=== PATIENT | female | born 1950 | race Caucasian/White ===

== ENCOUNTER 2019-07-03 07:28 | Emergency (ER) | payer MEDICARE ==
[2019-07-03] MEDS ORDERED: Ketorolac 30 MG/ML SDV IVPUSH ONE (07:45)
[2019-07-03] MEDS ORDERED: Dextrose 5%-0.9% NaCl 1,000 ML IV SCH (07:45)
[2019-07-03] MEDS ORDERED: Ondansetron 4 MG/2 ML SDV IVPUSH ONE (07:46)
[2019-07-03] MEDS ORDERED: HYDROmorphone 0.5 MG/0.5 ML Syringe IVPUSH ONE (07:47)
--- NOTE | 2019-07-03 07:47 | EDM.PDOC ---
ED HPI GENERAL MEDICAL PROBLEM - General Chief Complaint: Flank Pain Stated Complaint: [facility] Time Seen by Provider: 07/03/19 07:37 Source of Information: Reports: Patient, EMS History Limitations: Reports: No Limitations - History of Present Illness INITIAL COMMENTS - FREE TEXT/NARRATIVE: 68-year-old female presents to the ED complaining of finding of severe right low back pain which minimizes her mobility. States the pain kept her awake a good portion of the night. Was seen in consultation with PA student Pedro Bowie. Agree with his documentation and assessment and treatment plan of this patient. She denies any trips falls or injuries to her back. She been riding a bus for the last 36 hours riding and very awkward positions. No radiculopathy or pain rating down her buttock or leg. No loss of bladder or bowel control Onset: Gradual Onset Date: 07/02/19 Onset Time: 19:00 Duration: Hour(s):, Getting Worse Location: Reports: Back (Right low back pain rating all the way up to her shoulder blade on the right side) Quality: Reports: Ache, Other Severity: Moderate (Cage like sharp stabbing spastic type pain) Improves with: Reports: Rest ( 8 out of 10) Worsens with: Reports: Movement Context: Denies: Activity, Exercise, Lifting, Sick Contact, Trauma, Other Associated Symptoms: Reports: Other (Hurts to take a deep breathing as it makes the muscle spasm.) Treatments DOUBLER HELPER: Reports: Acetaminophen, NSAIDS Right Flank Pain Score (Numeric/FACES): 8 - Related Data Allergies Allergy/AdvReac Type Severity Reaction Status Date / Time aspirin Allergy Stomach Verified 07/03/19 07:39 Upset Home Meds: Home Meds Cyclobenzaprine [Flexeril] 10 mg PO BEDTIME PRN #10 tab 07/03/19 [Rx] oxyCODONE HCl/Acetaminophen [Percocet 5-325 mg Tablet] 1 - 2 each PO Q4H PRN # 20 tablet 07/03/19 [Rx] predniSONE [Prednisone] 20 mg PO BID #10 tablet 07/03/19 [Rx] Past Medical History Cardiovascular History: Reports: Heart Valve Replacement, Hypertension ( Thrombotic agents. Arctic valve replacement. She is currently not on any anti- ) Respiratory History: Reports: COPD Musculoskeletal History: Reports: Arthritis, Osteoarthritis, Osteoporosis Social & Family History - Living Situation & Occupation Living situation: Reports: Single Occupation: Retired ED ROS GENERAL - Review of Systems Review Of Systems: See Below Constitutional: Reports: Malaise, Weakness, Fatigue, Other (Not had much to eat or drink in the last 2 days.). Denies: Fever, Chills HEENT: Reports: Glasses Respiratory: Reports: No Symptoms Cardiovascular: Reports: Edema (Edema both lower extremities with venous stasis dermatitis.). Denies: Chest Pain, Blood Pressure Problem, Claudication, Lightheadedness, Orthopnea Endocrine: Reports: Fatigue GI/Abdominal: Reports: Constipation (Occasional problems) Skin: Reports: Other Neurological: Reports: No Symptoms (Venous stasis dermatitis both lower extremities) Psychiatric: Reports: No Symptoms Hematologic/Lymphatic: Reports: No Symptoms Immunologic: Reports: No Symptoms ED EXAM,LOWER BACK PAIN/INJURY - Physical Exam Exam: See Below Exam Limited By: No Limitations General Appearance: Alert, WD/WN, Moderate Distress, Other (Vital signs were temperature 36.6 with heart rate of 77 and sinus respiratory to 16 BP 05/17/1975 pulse ox is 93% on room air) Eye Exam: Bilateral Eye: Normal Inspection Throat/Mouth: Other Head: Atraumatic, Normocephalic (Tongue is mildly dry and coated) Neck: Normal Inspection, Supple, Non-Tender, Full Range of Motion, Tender Lateral (Tender bilateral aspect of neck). No: Limited Range of Motion, Lymphadenopathy (L) Respiratory/Chest: No Respiratory Distress, Lungs Clear, Normal Breath Sounds, No Accessory Muscle Use Cardiovascular: Normal Peripheral Pulses, Regular Rate, Rhythm, No Edema, No Gallop, No Murmur, No Rub, Other (Healed midline sternotomy incision) GI/Abdominal: Normal Bowel Sounds, Soft, Non-Tender, No Organomegaly, No Mass, Pelvis Stable, Other (Moderately obese. Abdominal girth limits ability to palpate solid organs.) Back Exam: Other (Patient has diffuse pain on palpation throughout the right lower back particular a L4-L5 and L5-S1 facet joints. There is mild associated paraspinal muscle spasm. She complains of pain all the way up to thoracic 6 vertebra adjacent to her scapula no rib head subluxation was identified.) Extremities: Other (Very minimal edema of her feet. She has significant venous stasis dermatitis with dark brawny discoloration almost up to the knees bilaterally.) Neurological: Alert, Normal Mood/Affect, Normal Dorsiflexion, CN II-XII Intact Psychiatric: Normal Affect, Normal Mood Skin Exam: Warm, Dry, Intact, Normal Color, No Rash Course - Vital Signs Last Recorded V/S: Last Vital Signs Temp 36.6 C 07/03/19 07:36 Pulse 77 07/03/19 07:36 Resp 16 07/03/19 07:36 BP 126/76 07/03/19 07:36 Pulse Ox 94 L 07/03/19 08:15 - Orders/Labs/Meds Labs: Laboratory Tests 07/03/19 Range/Units 09:55 Urine Color Yellow (Yellow) Urine Appearance Clear (Clear) Urine pH 6.0 (5.0-8.0) Ur Specific [place] > or = 1.030 (1.005-1.030) Urine Protein 2+ H (Negative) Urine Glucose (UA) Negative (Negative) Urine Ketones Negative (Negative) Urine Occult Blood Negative (Negative) Urine Nitrite Negative (Negative) Urine Bilirubin 2+ H (Negative) Urine Urobilinogen 2.0 H (0.2-1.0) Ur Leukocyte Esterase Trace H (Negative) U Hyaline Cast (Auto) 0-5 (0-5) /lpf Urine RBC 10-20 H (0-5) /hpf Urine WBC 5-10 H (0-5) /hpf Ur Squamous Epith Cells 10-20 H (0-5) /hpf Amorphous Sediment Few H (NOT SEEN) /hpf Urine Bacteria Moderate H (FEW) /hpf Urine Mucus Few (FEW) /hpf Meds: Medications Discontinued Medications Generic Name Dose Route Start Last Admin Trade Name Harsh PRN Reason Stop Dose Admin Diazepam 2.5 mg 07/03/19 07:46 07/03/19 08:04 Valium IVPUSH 07/03/19 07:47 2.5 mg ONETIME ONE Administration Hydromorphone HCl 0.5 mg 07/03/19 07:47 07/03/19 07:58 Dilaudid IVPUSH 07/03/19 07:48 0.5 mg ONETIME ONE Administration Dextrose/Sodium Chloride 1,000 mls @ 999 mls/hr 07/03/19 07:45 07/03/19 07:56 Dextrose 5%-Normal Saline IV 999 mls/hr ASDIRECTED MARVIN Administration Ketorolac Tromethamine 30 mg 07/03/19 07:45 07/03/19 07:57 Toradol IVPUSH 07/03/19 07:46 30 mg ONETIME ONE Administration Methylprednisolone Sodium Succinate 125 mg 07/03/19 07:48 07/03/19 08:18 Solu-Medrol IVPUSH 07/03/19 07:49 125 mg ONETIME ONE Administration Ondansetron HCl 4 mg 07/03/19 07:46 07/03/19 07:57 Zofran IVPUSH 07/03/19 07:47 4 mg ONETIME ONE Administration - Radiology Interpretation Free Text/Narrative:: 8-year-old female presents to the ED with diffuse low back pain. She was seen in consultation with PA student Pedro Vela. I agree with his assessment documentation and treatment plan. She was given Dilaudid 0.5 mg IV with Valium 2.5 mg IV for muscle spasm and pain. Also given Solu-Medrol 125 mg IV and Toradol 30 mg IV. Patient will be reassessed in about an hour's time. At this point time appears that she is homeless after getting off the bus. Will have social work assistant see her in consultation with a view to possibly getting into the women's long term until she can sort out where she is going. Her plans were to travel to [facility]. - Re-Assessments/Exams Free Text/Narrative Re-Assessment/Exam: 07/03/19 08:47 patient indicates that she is feeling much better. She is slightly drowsy from the medication but no further spasm in her low back muscles has occurred. We are getting her breakfast as it is been a while since she is eaten. youth accommodation support worker has yet to see her. Reports her pain is down to 2 out of 10. 07/03/19 10:40 social work assistant is working with the patient to try and arrange for a bus ticket for her to get to her son's home since she gave up her home in [place] to move out here and has only $4 to her name. We will try and get medication for her back through the [facility] machine. This will include Percocet 5/325 mg 1 or 2 every 4-6 hours needed for pain relief x20 tablets. Flexeril 10 mg x 1 at bedtime x10 tablets, and prednisone 20 mg twice daily for 5 days and then 1 in the morning for another 5 days for total of 15 tablets. Departure - Departure Time of Disposition: 11:50 Disposition: Home, Self-Care 01 Condition: Fair Clinical Impression: Acute myofascial strain of lumbar region Qualifiers: Encounter type: initial encounter Qualified Code(s): S39.012A - Strain of muscle, fascia and tendon of lower back, initial encounter - Discharge Information *PRESCRIPTION DRUG MONITORING PROGRAM REVIEWED*: Not Applicable *COPY OF PRESCRIPTION DRUG MONITORING REPORT IN PATIENT LAZARO: Not Applicable Prescriptions: Cyclobenzaprine [Flexeril] 10 mg PO BEDTIME PRN #10 tab PRN Reason: Relief of muscle spasm oxyCODONE HCl/Acetaminophen [Percocet 5-325 mg Tablet] 1 - 2 each PO Q4H PRN # 20 tablet PRN Reason: pain relief. predniSONE [Prednisone] 20 mg PO BID #10 tablet Instructions: Lumbosacral Strain Referrals: PCP,Not In Area [Primary Care Provider] - Forms: ED Department Discharge Additional Instructions: Evaluation in the emergency room today in regards to development of severe right low back pain rating up as high as her shoulder blade on the right side. This is occurred over the last 36 to 48 hours after a lengthy ride on a bus in a very uncomfortable position. Examination reveals inflammation of the facet joints in the lower back particularily at lumbar 4- L5 and at L5-S1 levels. This has created inflammation of the joint similar to a sprained ankle in your lower back causing overlying muscle spasm and pain. You were treated in the emergency room with intravenous pain medication and muscle relaxant. He will need to take oral medications for pain relief and muscle relaxation as an outpatient. Suggest prednisone 20 mg tablet first thing in the morning with breakfast and with supper for 5 days and then 1 to relieve pain and inflammation. Flexeril 10 mg tablet primarily used at bedtime to help sleep and relieve muscle spasm. This is to be used as needed. Percocet tabs 5/325 mg strength 1 or 2 every 4-6 hours as needed for pain relief. Expect gradual improvement over the next 3 to 7 days. Animal lifting, pushing, carrying until better. Sepsis Event Note - Focused Exam Date Exam was Performed: 07/08/19 Time Exam was Performed: 14:13
[2019-07-03] MEDS ORDERED: methylPREDNISolone Sodium Succinate 125 MG/2 ML SDV IVPUSH ONE (07:48)
--- NOTE | 2019-07-03 07:50 | EDM.PDOC ---
<Pedro Bowie - Last Filed: 07/03/19 07:44> ED HPI GENERAL MEDICAL PROBLEM - General Chief Complaint: Flank Pain Stated Complaint: [facility] Time Seen by Provider: 07/03/19 07:35 Source of Information: Reports: Patient History Limitations: Reports: No Limitations - History of Present Illness INITIAL COMMENTS - FREE TEXT/NARRATIVE: Pt presents to the ED today with low back and flank plain across her right side that radiates from her shoulder blade down to her hip. She reports she spent 36 hours on a bus yesterday when the pain started and then when she woke up this morning the pain become intolerable upon standing. She then summoned an ambulance who brought her into the ED. She is reporting pain localized to the paraspinal muscles on her right side that is most notable around the L4 and L5 vertebrae, but it does radiate up along her spine and down to her hip. She denies any pain this significant before and denies any trauma or heavy lifting that would have caused this. She states she has not taken anything for the pain , and that the only medication she is currently on is Lasix which she takes occasionally. Right Flank Pain Score (Numeric/FACES): 8 - Related Data Allergies Allergy/AdvReac Type Severity Reaction Status Date / Time aspirin Allergy Stomach Verified 07/03/19 07:39 Upset Home Meds: Home Meds Cyclobenzaprine [Flexeril] 10 mg PO BEDTIME PRN #10 tab 07/03/19 [Rx] oxyCODONE HCl/Acetaminophen [Percocet 5-325 mg Tablet] 1 - 2 each PO Q4H PRN # 20 tablet 07/03/19 [Rx] predniSONE [Prednisone] 20 mg PO BID #10 tablet 07/03/19 [Rx] Past Medical History Cardiovascular History: Reports: Other (See Below) (Open Heart Surgery and Aortic valve replacement (2002)) Musculoskeletal History: Reports: Other (See Below) (Mild back pain prior but nothing to this severity) Endocrine/Metabolic History: Reports: Obesity/BMI 30+ Hematologic History: Reports: Other (See Below) (venous stasis in the lower limbs) Dermatologic History: Reports: Venous Stasis Dermatitis (Bilateral lower limbs, starting approximately at the mid to proximal tibia/fibula) - Past Surgical History Cardiovascular Surgical History: Reports: Valve Replacement GI Surgical History: Reports: Appendectomy Musculoskeletal Surgical History: Reports: Knee Replacement Social & Family History - Tobacco Use Smoking Status *Q: Never Smoker - Recreational Drug Use Recreational Drug Use: No ED ROS GENERAL - Review of Systems Review Of Systems: See Below Constitutional: Reports: No Symptoms HEENT: Reports: No Symptoms Respiratory: Reports: No Symptoms Cardiovascular: Reports: Other (see PMH) GI/Abdominal: Reports: No Symptoms : Reports: Flank Pain Musculoskeletal: Reports: Back Pain, Joint Pain, Muscle Pain. Denies: Neck Pain , Shoulder Pain, Arm Pain, Hand Pain, Leg Pain, Foot Pain, Muscle Stiffness Skin: Reports: Change in Color, Other (venous stasis dermatitis of bilateral lower limbs ) Neurological: Reports: No Symptoms Psychiatric: Reports: No Symptoms ED EXAM,LOWER BACK PAIN/INJURY - Physical Exam Exam: See Below Exam Limited By: No Limitations General Appearance: Alert, WD/WN, No Apparent Distress Throat/Mouth: Other (tongue and oral mucosa dryness) Respiratory/Chest: No Respiratory Distress, Lungs Clear, Normal Breath Sounds Cardiovascular: Normal Peripheral Pulses, Regular Rate, Rhythm, Other (well healed mid-line sternotomy incision) Back Exam: Paraspinal Tenderness (Right sided with prominetn tenderness across L4 and L5). No: Normal Inspection, Full Range of Motion Extremities: Pedal Edema, Other (venoues stasis of bilateral lower limbs ). No : Normal Inspection Neurological: Alert, Normal Mood/Affect, No Motor/Sensory Deficits Psychiatric: Normal Affect, Normal Mood Skin Exam: Warm, Dry, Intact, No Rash. No: Normal Color (Venous stasis dermatiti bilateral lower limbs ) Course - Vital Signs Last Recorded V/S: Last Vital Signs Temp 36.6 C 07/03/19 07:36 Pulse 77 07/03/19 07:36 Resp 16 07/03/19 07:36 BP 126/76 07/03/19 07:36 Pulse Ox 94 L 07/03/19 08:15 - Orders/Labs/Meds Labs: Laboratory Tests 07/03/19 Range/Units 09:55 Urine Color Yellow (Yellow) Urine Appearance Clear (Clear) Urine pH 6.0 (5.0-8.0) Ur Specific [place] > or = 1.030 (1.005-1.030) Urine Protein 2+ H (Negative) Urine Glucose (UA) Negative (Negative) Urine Ketones Negative (Negative) Urine Occult Blood Negative (Negative) Urine Nitrite Negative (Negative) Urine Bilirubin 2+ H (Negative) Urine Urobilinogen 2.0 H (0.2-1.0) Ur Leukocyte Esterase Trace H (Negative) U Hyaline Cast (Auto) 0-5 (0-5) /lpf Urine RBC 10-20 H (0-5) /hpf Urine WBC 5-10 H (0-5) /hpf Ur Squamous Epith Cells 10-20 H (0-5) /hpf Amorphous Sediment Few H (NOT SEEN) /hpf Urine Bacteria Moderate H (FEW) /hpf Urine Mucus Few (FEW) /hpf Meds: Medications Discontinued Medications Generic Name Dose Route Start Last Admin Trade Name Freq PRN Reason Stop Dose Admin Diazepam 2.5 mg 07/03/19 07:46 07/03/19 08:04 Valium IVPUSH 07/03/19 07:47 2.5 mg ONETIME ONE Administration Hydromorphone HCl 0.5 mg 07/03/19 07:47 07/03/19 07:58 Dilaudid IVPUSH 07/03/19 07:48 0.5 mg ONETIME ONE Administration Dextrose/Sodium Chloride 1,000 mls @ 999 mls/hr 07/03/19 07:45 07/03/19 07:56 Dextrose 5%-Normal Saline IV 999 mls/hr ASDIRECTED MARVIN Administration Ketorolac Tromethamine 30 mg 07/03/19 07:45 07/03/19 07:57 Toradol IVPUSH 07/03/19 07:46 30 mg ONETIME ONE Administration Methylprednisolone Sodium Succinate 125 mg 07/03/19 07:48 07/03/19 08:18 Solu-Medrol IVPUSH 07/03/19 07:49 125 mg ONETIME ONE Administration Ondansetron HCl 4 mg 07/03/19 07:46 07/03/19 07:57 Zofran IVPUSH 07/03/19 07:47 4 mg ONETIME ONE Administration Departure - Departure Disposition: Home, Self-Care 01 Clinical Impression: Acute myofascial strain of lumbar region Qualifiers: Encounter type: initial encounter Qualified Code(s): S39.012A - Strain of muscle, fascia and tendon of lower back, initial encounter - Discharge Information Prescriptions: Cyclobenzaprine [Flexeril] 10 mg PO BEDTIME PRN #10 tab PRN Reason: Relief of muscle spasm oxyCODONE HCl/Acetaminophen [Percocet 5-325 mg Tablet] 1 - 2 each PO Q4H PRN # 20 tablet PRN Reason: pain relief. predniSONE [Prednisone] 20 mg PO BID #10 tablet Instructions: Lumbosacral Strain Referrals: PCP,Not In Area [Primary Care Provider] - Forms: ED Department Discharge Additional Instructions: Evaluation in the emergency room today in regards to development of severe right low back pain rating up as high as her shoulder blade on the right side. This is occurred over the last 36 to 48 hours after a lengthy ride on a bus in a very uncomfortable position. Examination reveals inflammation of the facet joints in the lower back particularily at lumbar 4- L5 and at L5-S1 levels. This has created inflammation of the joint similar to a sprained ankle in your lower back causing overlying muscle spasm and pain. You were treated in the emergency room with intravenous pain medication and muscle relaxant. He will need to take oral medications for pain relief and muscle relaxation as an outpatient. Suggest prednisone 20 mg tablet first thing in the morning with breakfast and with supper for 5 days and then 1 to relieve pain and inflammation. Flexeril 10 mg tablet primarily used at bedtime to help sleep and relieve muscle spasm. This is to be used as needed. Percocet tabs 5/325 mg strength 1 or 2 every 4-6 hours as needed for pain relief. Expect gradual improvement over the next 3 to 7 days. Animal lifting, pushing, carrying until better. Sepsis Event Note - Evaluation Sepsis Screening Result: No Definite Risk - Focused Exam Date Exam was Performed: 07/03/19 Time Exam was Performed: 07:44 <Gutierrez Berumen - Last Filed: 07/08/19 14:24> ED HPI GENERAL MEDICAL PROBLEM - History of Present Illness Onset: Today, Gradual Onset Date: 07/01/19 Duration: Day(s):, Getting Worse Location: Reports: Back Quality: Reports: Ache, Throbbing, Other Severity: Moderate (Constant pain with occasional sharp stabbing pain with certain movements a spastic component to 10) Improves with: Reports: Rest Worsens with: Reports: Movement (Events such as) Context: Reports: Other (Believes it started while riding on a bus for the last 36 to 48 hours to ). Denies: Activity ( twisting standing walking coughing or sneezing), Exercise, Lifting, Sick Contact, Trauma Associated Symptoms: Reports: Malaise. Denies: Confusion, Chest Pain, Cough, cough w sputum, Diaphoresis, Fever/Chills, Headaches, Loss of Appetite, Nausea/ Vomiting, Rash, Seizure, Shortness of Breath (From not sleeping), Syncope Past Medical History Endocrine/Metabolic History: Reports: Obesity/BMI 30+ Social & Family History - Living Situation & Occupation Living situation: Reports: Single Occupation: Unemployed (She is in for all intents and purposes homeless at this time) Course - Radiology Interpretation Free Text/Narrative:: 68-year-old female presents to the ED for evaluation of diffuse right-sided low back pain that started over the last 2 to 3 days while she was riding a bus for the last 48 hours. She traveled to [place] hoping to meet up with a gentleman that she had met online who did not show up. She made it as far as [place] before she was off the bus due to the severity of the pain. She came directly to the hospital. States the pain is taking her breath away with deep inspiration and no position is comfortable at present. Point of maximal tenderness proved to be at the L3-L4 facet joints in her right lower back on my examination. She was also seen and examined by PA student Pedro Bowie. The plan will be to provide analgesia. I do not feel imaging is necessary at this point time. She is essentially homeless and therefore is in need of a meal which will be provided as well. We will also get the social security specialist involved in terms of trying to find her a place to stay. I will be to give her D5 normal saline at 150 mils per hour. She will receive Toradol 30 mg IV for inflammation and pain relief Solu-Medrol 125 mg IV. Valium 2.5 mg IV for muscle spasm relief and Dilaudid 0.5 mg IV for further pain relief. Labs are felt to be indicated. - Re-Assessments/Exams Free Text/Narrative Re-Assessment/Exam: 07/03/19 10:19: She reports back pain is markedly improved. She is been able to get up to the washroom on 3 occasions and walk fairly well with mild pain. grain oilseed or pasture farm worker has yet to see her. 07/03/19 11:20 : Her worker is seen her and agrees with finding her place to reside in fact I think they are going to get her a bus ticket to her up to [place] to her son's home. Time she will have meds filled through the [facility] machine. Percocet tabs 5/325 mg 1 or 2 every 4-6 hours necessary for pain relief 20 tablets provided. Flexeril 10 mg at bedtime for muscle spasm relief x10 tablets although I think [facility] dispenses 15 tablets. Take Motrin 600 mg every 6 hours [id number]. Will also be placed on prednisone 20 mg twice daily for 5 days with breakfast and supper. Follow-up with physician in [place]. Departure - Departure Time of Disposition: 11:50 - Discharge Information *PRESCRIPTION DRUG MONITORING PROGRAM REVIEWED*: Not Applicable *COPY OF PRESCRIPTION DRUG MONITORING REPORT IN PATIENT LAZARO: Not Applicable
== END 2019-07-03 12:25 | disposition home or self-care (01) ==
LOC: JD.ED 07:28
DX: S39.012A Strain of muscle, fascia and tendon of lower back, initial encounter (principal); I10 Essential (primary) hypertension; M19.90 Unspecified osteoarthritis, unspecified site; J44.9 Chronic obstructive pulmonary disease, unspecified; Z88.8 Allergy status to other drugs, medicaments and biological substances; Z79.899 Other long term (current) drug therapy; X58.XXXA Exposure to other specified factors, initial encounter
CPT/HCPCS: 81001; 96361; 96374; 96375; 99284; J1170; J1885; J2405; J2930; J3360; J7042; 99283